=== PATIENT | male | born 1985 | race Caucasian/White ===

== ENCOUNTER 2020-12-27 11:30 | Emergency (ER) | payer SELFPAY ==
[2020-12-27] MEDS ORDERED: Tetracaine HCl 0.5% Ophth Soln 2 ML Bottle ONE (12:04)
[2020-12-27] MEDS ORDERED: Fluorescein Opthalmic Strip ONE (12:04)
== END 2020-12-27 13:02 | disposition home or self-care (01) ==
LOC: NAV ERS 11:30
DX: H01.006 Unspecified blepharitis left eye, unspecified eyelid (principal); E11.9 Type 2 diabetes mellitus without complications; F17.200 Nicotine dependence, unspecified, uncomplicated
CPT/HCPCS: 99283

== ENCOUNTER 2021-01-10 16:25 | Emergency (ER) | payer SELFPAY | END 2021-01-10 17:14 | disposition home or self-care (01) | LOC: NAV ERS 16:25 | DX: K04.7 Periapical abscess without sinus (principal); K02.9 Dental caries, unspecified; F17.210 Nicotine dependence, cigarettes, uncomplicated; Z79.899 Other long term (current) drug therapy | CPT/HCPCS: 99282 ==